=== PATIENT | female | born 1955 | race Caucasian/White ===

== ENCOUNTER → 2018-11-20 | Outpatient (CLI) | payer OTHER ==
[~2018-11-20] MED LIST: GLIP5TAB10 PO; METF500T16 PO
--- NOTE | 2018-11-20 09:55 | KCIC ---
Three-view left knee dated 11/20/2018. No comparison available. Clinical data indication: Pain. FINDINGS: 3 views left knee show normal bony alignment. No displaced fracture. No acute osseous or articular abnormality. Mild tricompartmental hypertrophic change with asymmetric joint space narrowing medially. No joint effusion. There is a suspected small loose body at the posterior lateral joint space. IMPRESSION: 1. No acute radiographic abnormality. 2. 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 Electronically signed by: David Castellano MD (11/20/2018 9:52 AM) [id number]
== END | disposition home or self-care (01) ==
LOC: KCIC 09:20
PROVIDERS: ATTEND Nurse Practitioner Family
DX: M17.12 Unilateral primary osteoarthritis, left knee (principal); M89.38 Hypertrophy of bone, other site
CPT/HCPCS: 73562

== ENCOUNTER → 2019-05-27 | Outpatient (CLI) | payer OTHER ==
--- NOTE | 2019-05-27 13:47 | KCIC ---
Bilateral digital screening mammograms: Reason for examination: Routine screening. New baseline. Interpretation was made with the benefit of CAD. The skin and nipples show no abnormalities. No abnormal lymph nodes are seen. The breast parenchyma is predominantly fatty. (Breast density: Category A.) There are no dominant masses, suspicious calcifications or architectural distortions. A few benign calcifications are seen. Impression: No evidence of malignancy. Recommend routine screening. BI-RADS Category 2: Benign. "Our facility is accredited by the [employer] Mammography Program." This patient's information has been entered into a reminder system for the patient to be notified with the results of her examination and a target date for the next mammogram. Electronically signed by: Kimberly Roberts MD (05/27/2019 1:44 PM) [id number]
== END | disposition home or self-care (01) ==
LOC: KCIC MAMMO 09:42
PROVIDERS: ATTEND Family Medicine
DX: Z12.31 Encounter for screening mammogram for malignant neoplasm of breast (principal); N64.89 Other specified disorders of breast
CPT/HCPCS: 77067